=== PATIENT | male | born 1995 | race Hispanic/Latino ===

== ENCOUNTER 2024-10-01 12:51 | Inpatient (IN) | payer SELFPAY ==
[~2024-10-01] VITALS: Ht 172.7 cm; Wt 117.9 kg
[~2024-10-01 12:51] MED LIST: [UNRECOGNIZED DRUG - OTHER] TOP
[2024-10-01 13:26] VITALS: TEMP 98.7
[2024-10-01] MEDS ORDERED: IOPAMIDOL 370 MG/ML 100 ML INFUS..BTL INJ ONE (13:56)
[2024-10-01 14:11] LABS: BASOPHILS % 0.1 % (0.0-1.0); EOSINOPHILS % 0.1 % (0.0-6.0); HEMATOCRIT 42.2 % (38.2-49.6); HEMOGLOBIN 15.4 g/dL (14.0-18.0); LYMPHOCYTES # (AUTO) 0.9 (1.0-3.2); LYMPHOCYTES % 6.3 % (18.0-39.1); MEAN CORPUSCULAR HEMOGLOBIN 30.5 pg (28-32); MEAN CORPUSCULAR HGB CONC 36.5 g/dL (31-35); MEAN CORPUSCULAR VOLUME 83.6 fL (81-99); MONOCYTES % 7.1 % (4.4-11.3); NEUTROPHILS # (AUTO) 12.1 (2.1-6.9); NEUTROPHILS % 85.7 % (38.7-80.0); PLATELET COUNT 150 x10e3/uL (140-360); RED BLOOD COUNT 5.05 x10e6/uL (4.3-5.7); RED CELL DISTRIBUTION WIDTH 12.2 % (11.7-14.4); WHITE BLOOD COUNT 14.14 x10e3/uL (4.8-10.8)
[2024-10-01 14:21] LABS: BACTERIA,URINE MODERATE /HPF; BILIRUBIN,URINE NEGATIVE (NEGATIVE); CLARITY,URINE SL CLOUDY (CLEAR); COLOR,URINE AMBER (YELLOW); EPITHELIAL CELLS,URINE FEW /LPF; GLUCOSE, URINE NEGATIVE (NEGATIVE); KETONES,URINE NEGATIVE (NEGATIVE); LEUKOCYTE ESTERASE ,URINE NEGATIVE (NEGATIVE); NITRITE,URINE NEGATIVE (NEGATIVE); PH,URINE 6 (5 - 7); PROTEIN,URINE DIPSTICK 2+ (NEGATIVE); RBC,URINE 21-50 /HPF (0-5); URINE UROBILINOGEN 0.2 mg/dL (0.2 - 1); WBC,URINE (MAN) 0-5 /HPF (0-5)
[2024-10-01 14:42] LABS: ALANINE AMINOTRANSFERASE 27 IU/L (0-55); ALBUMIN 4.4 g/dL (3.5-5.0); ALBUMIN/GLOBULIN RATIO 1.1 (0.8-2.0); ALKALINE PHOSPHATASE 78 IU/L (40-150); ANION GAP 16.9 mmol/L (8-16); BILIRUBIN,TOTAL 0.9 mg/dL (0.2-1.2); BLOOD UREA NITROGEN 9 mg/dL (7-26); BUN/CREATININE RATIO 9 (6-25); CALCIUM 8.8 mg/dL (8.4-10.2); CARBON DIOXIDE 23 mmol/L (22-29); CHLORIDE 98 mmol/L (98-107); CREATININE, SERUM 0.96 mg/dL (0.72-1.25); EST GLOMERULAR FILTRATION RATE 112 ML/MIN (>=60); GLUCOSE 125 mg/dL (74-118); LIPASE 135 U/L (8-78); MAGNESIUM 1.6 MG/DL (1.3-2.1); POTASSIUM 3.9 mmol/L (3.5-5.1); SODIUM 134 mmol/L (136-145); TOTAL PROTEIN 8.5 g/dL (6.5-8.1)
[2024-10-01] MEDS: ONDANSETRON HCL INJ 2MG/ML 2ML 2 MG/ML VIAL IV STA (14:48)
[2024-10-01] MEDS: SODIUM CHLORIDE 0.9% 1000ML 1,000 ML IV STA (14:49)
[2024-10-01] MEDS: KETOROLAC TROMETHAMINE 30 MG/ML VIAL IV STA (14:49)
[2024-10-01 14:55] LABS: TROPONIN I < 0.001 ng/mL (0-0.300)
[2024-10-01] MEDS ORDERED: ONDANSETRON HCL INJ 2MG/ML 2ML 2 MG/ML VIAL IV PRN (16:45)
[2024-10-01] MEDS: SODIUM CHLORIDE 0.9% 1000ML 1,000 ML IV SCH (17:16)
[2024-10-01] MEDS: HYDROMORPHONE 1MG/1ML INJ IV PRN (18:17)
[2024-10-01 18:42] LABS: CHOL/HDL RATIO 11.9 (3.9-4.7); CHOLESTEROL 274 MD/DL (0-199); HDL CHOLESTEROL 23 MG/DL (40-60); TRIGLYCERIDES 1029 MG/DL (0-149)
[2024-10-01] MEDS ORDERED: HYDRALAZINE HCL 20 MG/ML VIAL IV PRN (18:45)
[2024-10-01] MEDS: HYDRALAZINE HCL 20 MG/ML VIAL IV PRN (18:57)
[2024-10-01] MEDS: LABETALOL HCL 5 MG/ML 20ML VIAL IV STA (20:18)
[2024-10-01] MEDS: HYDROMORPHONE 1MG/1ML INJ IV STA (20:18)
[2024-10-01 21:01] VITALS: RESP 16
[2024-10-01] MEDS: MAGNESIUM SULFATE 2GM/50ML 50 ML IV ONE (22:37)
[2024-10-01] MEDS ORDERED: POLYETHYLENE GLYCOL 3350 17 GM PACK PO PRN (23:00)
[2024-10-01] MEDS ORDERED: ACETAMINOPHEN 325 MG TAB PO PRN (23:00)
[2024-10-01 23:15] VITALS: PULSE 80
[2024-10-02] VITALS (12 sets, daily range): BP systolic 153–182; BP diastolic 76–109; PULSE 76–102; RESP 14–20; TEMP 98.1–98.8; O2SAT 97–100
[2024-10-02] MEDS: HYDROMORPHONE 1MG/1ML INJ IV PRN (00:29)
[2024-10-02] MEDS ORDERED: no home meds per pt (00:56)
[2024-10-02] MEDS: NIFEDIPINE CR 30 MG TAB PO ONE (01:37)
[2024-10-02] MEDS: LACTATED RINGER'S 1,000 ML INJ SCH (01:37)
[2024-10-02] MEDS: LABETALOL HCL 5 MG/ML 20ML VIAL IV PRN (05:06)
[2024-10-02 05:23] LABS: BASOPHILS % 0.4 % (0.0-1.0); EOSINOPHILS # (AUTO) 0.1 (0.0-0.4); HEMATOCRIT 40.1 % (38.2-49.6); HEMOGLOBIN 14.2 g/dL (14.0-18.0); LYMPHOCYTES # (AUTO) 1.6 (1.0-3.2); LYMPHOCYTES % 18.5 % (18.0-39.1); MEAN CORPUSCULAR HEMOGLOBIN 30.3 pg (28-32); MEAN CORPUSCULAR HGB CONC 35.4 g/dL (31-35); MEAN CORPUSCULAR VOLUME 85.7 fL (81-99); MONOCYTES # (AUTO) 0.8 (0.2-0.8); MONOCYTES % 9.6 % (4.4-11.3); NEUTROPHILS # (AUTO) 5.9 (2.1-6.9); NEUTROPHILS % 70.3 % (38.7-80.0); PLATELET COUNT 126 x10e3/uL (140-360); RED BLOOD COUNT 4.68 x10e6/uL (4.3-5.7); RED CELL DISTRIBUTION WIDTH 12.5 % (11.7-14.4)
[2024-10-02 06:02] LABS: ALBUMIN 3.7 g/dL (3.5-5.0); ANION GAP 16.6 mmol/L (8-16); BILIRUBIN,TOTAL 0.6 mg/dL (0.2-1.2); CALCIUM 8.7 mg/dL (8.4-10.2); CREATININE, SERUM 0.86 mg/dL (0.72-1.25); POTASSIUM 3.6 mmol/L (3.5-5.1); TOTAL PROTEIN 7.5 g/dL (6.5-8.1)
[2024-10-02 06:24] LABS: MAGNESIUM 2.1 MG/DL (1.3-2.1); PHOSPHORUS 3.3 MG/DL (2.3-4.7)
[2024-10-02 06:43] LABS: FREE T4 (FREE THYROXINE) 0.87 ng/dL (0.8-1.8); THYROID STIMULATING HORMONE 2.04 uIU/mL (0.350-4.940)
[2024-10-02] MEDS: DOCUSATE SODIUM 100 MG CAP PO SCH (09:07)
[2024-10-02] MEDS: FENOFIBRATE 145 MG TAB PO SCH (09:07)
[2024-10-02] MEDS: NIFEDIPINE CR 30 MG TAB PO SCH (20:50)
[2024-10-03 00:20] VITALS: BP 153/93; PULSE 98; RESP 16; TEMP 98.3; O2SAT 99
[2024-10-03 04:26] VITALS: BP 146/86; PULSE 87; RESP 18; TEMP 98.4; O2SAT 98
[2024-10-03 05:36] LABS: BASOPHILS % 0.2 % (0.0-1.0); EOSINOPHILS # (AUTO) 0.1 (0.0-0.4); EOSINOPHILS % 1.3 % (0.0-6.0); HEMATOCRIT 40.2 % (38.2-49.6); HEMOGLOBIN 13.8 g/dL (14.0-18.0); LYMPHOCYTES % 16.5 % (18.0-39.1); MEAN CORPUSCULAR HEMOGLOBIN 30.1 pg (28-32); MEAN CORPUSCULAR HGB CONC 34.3 g/dL (31-35); MEAN CORPUSCULAR VOLUME 87.6 fL (81-99); MONOCYTES # (AUTO) 0.8 (0.2-0.8); MONOCYTES % 12.8 % (4.4-11.3); NEUTROPHILS # (AUTO) 4.3 (2.1-6.9); NEUTROPHILS % 68.9 % (38.7-80.0); PLATELET COUNT 127 x10e3/uL (140-360); RED BLOOD COUNT 4.59 x10e6/uL (4.3-5.7); RED CELL DISTRIBUTION WIDTH 12.5 % (11.7-14.4); WHITE BLOOD COUNT 6.26 x10e3/uL (4.8-10.8)
[2024-10-03 06:05] LABS: ALBUMIN 3.6 g/dL (3.5-5.0); ALBUMIN/GLOBULIN RATIO 0.9 (0.8-2.0); ANION GAP 13.6 mmol/L (8-16); BILIRUBIN,TOTAL 0.9 mg/dL (0.2-1.2); CALCIUM 8.9 mg/dL (8.4-10.2); CREATININE, SERUM 0.92 mg/dL (0.72-1.25); POTASSIUM 3.6 mmol/L (3.5-5.1); TOTAL PROTEIN 7.4 g/dL (6.5-8.1)
[2024-10-03 06:25] LABS: LIPASE 62 U/L (8-78); TRIGLYCERIDES 476 MG/DL (0-149)
[2024-10-03 07:17] VITALS: PULSE 93; RESP 18; O2SAT 98
[2024-10-03 08:00] VITALS: BP 141/82; PULSE 88; RESP 19; TEMP 98.1; O2SAT 99
[2024-10-03] MEDS: PANTOPRAZOLE SOD 40 MG TABEC PO SCH (08:28)
[2024-10-03 09:00] VITALS: BP 141/82; PULSE 88; RESP 19; TEMP 98.1; O2SAT 99
[2024-10-03] MEDS ORDERED: PROTONIX40 MG/ML PO (10:54)
[2024-10-03] MEDS ORDERED: FENOFIBRATE145 MG PO (10:54)
[2024-10-03] MEDS ORDERED: NIFEDIPINE ER30 M1 PO (10:54)
[2024-10-03] MEDS ORDERED: ONDANSETRON HCL 4 MG ORAL DISINTEGRATING TAB PO PRN (11:15)
[2024-10-03 11:20] VITALS: BP 159/92; PULSE 89; RESP 19; TEMP 98.4; O2SAT 97
== END 2024-10-03 12:21 | disposition home or self-care (01) | DRG 439 ==
LOC: ER 13:40 → ERHOLD 16:47 → MED/SURG 23:32
PROVIDERS: ADMIT Internal Medicine; ATTEND Internal Medicine
DX: K85.90 Acute pancreatitis without necrosis or infection, unspecified (principal); E87.1 Hypo-osmolality and hyponatremia; I10 Essential (primary) hypertension; E78.1 Pure hyperglyceridemia; K76.0 Fatty (change of) liver, not elsewhere classified; R16.1 Splenomegaly, not elsewhere classified; R31.9 Hematuria, unspecified; E83.42 Hypomagnesemia
CPT/HCPCS: 36415; 74177; 80053; 80061; 81001; 82088; 83036; 83690; 83735; 84100; 84439; 84443; 84478; 84484; 85025; 87086; 94799; 99284; J0360; J0696; J1171; J1885; J2405; J2470; J3475; J7030; Q9967